=== PATIENT | male | born 1990 | race Caucasian/White ===

== ENCOUNTER 2017-01-16 07:40 | Observation (INO) | payer OTHER ==
[2017-01-16] MEDS ORDERED: Ketorolac 30 MG/ML SDV IVPUSH ONE (07:46)
[2017-01-16] MEDS ORDERED: Sodium Chloride 0.9% 1,000 ML IV ONE (07:46)
--- NOTE | 2017-01-16 08:04 | EDM.PDOC ---
ED HPI GENERAL MEDICAL PROBLEM - General Chief Complaint: Abdominal Pain Stated Complaint: ABDOMINAL AND SIDE PAIN Time Seen by Provider: 01/16/17 07:45 - History of Present Illness INITIAL COMMENTS - FREE TEXT/NARRATIVE: HISTORY AND PHYSICAL: History of present illness: Patient 26-year-old male presents with concern of acute right sided abdominal pain he states he noticed this initially yesterday at work when he felt a pop he has had prior herniorrhaphy on the right side he denies fever chills nausea vomiting he denies urinary symptoms denies history of urolithiasis Review of systems: As per history of present illness and below otherwise all systems reviewed and negative. Past medical history: As per history of present illness and as reviewed below otherwise noncontributory. Surgical history: As per history of present illness and as reviewed below otherwise noncontributory. Social history: No reported history of drug or alcohol abuse. Family history: As per history of present illness and as reviewed below otherwise noncontributory. Physical exam: HEENT: Atraumatic, normocephalic, pupils reactive, negative for conjunctival pallor or scleral icterus, mucous membranes moist, throat clear, neck supple, nontender, trachea midline. Lungs: Clear to auscultation, breath sounds equal bilaterally, chest nontender. Heart: S1S2, regular, negative for clicks, rubs, or JVD. Abdomen: Soft, nondistended, tenderness in right lower quadrant no rebound equivocal voluntary guarding. Negative for masses or hepatosplenomegaly. Negative for costovertebral tenderness. Pelvis: Stable nontender. Genitourinary: No hernia normal testes normal exam Rectal: Deferred. Extremities: Atraumatic, negative for cords or calf pain. Neurovascular unremarkable. Neuro: Awake, alert, oriented. Cranial nerves II through XII unremarkable. Cerebellum unremarkable. Motor and sensory unremarkable throughout. Exam nonfocal. Diagnostics: CBC CMP UA urine culture CT abdomen and pelvis Therapeutics: Normal saline 1 L bolus Toradol 30 mg IV Impression: #1 right-sided abdominal pain Definitive disposition and diagnosis as appropriate pending reevaluation and review of above. abdomen Pain Score (Numeric/FACES): 9 - Related Data Allergies Allergy/AdvReac Type Severity Reaction Status Date / Time No Known Allergies Allergy Verified 01/16/17 07:46 Home Meds: Home Meds . [No Known Home Meds] 01/16/17 [History] Past Medical History - Past Health History Medical/Surgical History: Denies Medical/Surgical History - Past Surgical History GI Surgical History: Reports: Hernia Repair/Other Social & Family History - Family History Family Medical History: Noncontributory - Tobacco Use Smoking Status *Q: Current Every Day Smoker Years of Tobacco use: 13 Packs/Tins Daily: 1 - Caffeine Use Caffeine Use: Reports: None - Recreational Drug Use Recreational Drug Use: No ED ROS GENERAL - Review of Systems Review Of Systems: ROS reveals no pertinent complaints other than HPI. ED EXAM, GENERAL - Physical Exam Exam: See Below (See dictation) Course - Vital Signs Last Recorded V/S: Last Vital Signs Temp 36.1 C 01/16/17 07:47 Pulse 91 01/16/17 09:43 Resp 18 01/16/17 09:43 BP 141/84 H 01/16/17 09:43 Pulse Ox 97 01/16/17 09:43 - Orders/Labs/Meds Orders: Active Orders 24 hr Category Date Time Status CULTURE URINE [RM] Stat Lab 01/16/17 08:00 Received Labs: Laboratory Tests 01/16/17 01/16/17 01/16/17 Range/Units 07:54 07:54 08:00 WBC 28.44 H (4.0-11.0) K/uL RBC 5.69 (4.50-5.90) M/uL Hgb 16.4 (13.0-17.0) g/dL Hct 48.8 (38.0-50.0) % MCV 85.8 (80.0-98.0) fL MCH 28.8 (27.0-32.0) pg MCHC 33.6 (31.0-37.0) g/dL RDW Std Deviation 42.1 (28.0-62.0) fl RDW Coeff of Ean 14 (11.0-15.0) % Plt Count 359 (150-400) K/uL MPV 9.60 (7.40-12.00) fL Add Manual Diff YES Neutrophils % (Manual) 86 H (48.0-80.0) % Band Neutrophils % 2 % Lymphocytes % (Manual) 6 L (16.0-40.0) % Monocytes % (Manual) 5 (0.0-15.0) % Eosinophils % (Manual) 1 (0.0-7.0) % Nucleated RBC % 0.0 /100WBC Absolute Seg Neuts 24.5 Band Neutrophils # 0.6 Lymphocytes # (Manual) 1.7 Monocytes # (Manual) 1.4 Eosinophils # (Manual) 0.3 Nucleated RBCs # 0 K/uL Sodium 139 (136-146) mmol/L Potassium 4.2 (3.5-5.1) mmol/L Chloride 105 (98-110) mmol/L Carbon Dioxide 26 (21-31) mmol/L BUN 10 (6.0-23.0) mg/dL Creatinine 1.1 (0.6-1.5) mg/dL Est Cr Clr Drug Dosing 122.70 mL/min Estimated GFR (MDRD) > 60.0 ml/min Glucose 114 H (60-110) mg/dL Calcium 9.7 (8.8-10.8) mg/dL Total Bilirubin 0.8 (0.1-1.5) mg/dL AST 27 (5-40) IU/L ALT 58 H (8-54) IU/L Alkaline Phosphatase 64 (40-150) Total Protein 8.1 H (6.0-8.0) g/dL Albumin 4.5 (3.5-5.0) g/dL Globulin 3.6 H (2.0-3.5) g/dL Albumin/Globulin Ratio 1.3 (1.3-2.8) Urine Color DARK YELLOW Urine Appearance CLEAR Urine pH 7.5 (5.0-8.0) Ur Specific [place] 1.020 (1.001-1.035) Urine Protein TRACE (NEGATIVE) mg/dL Urine Glucose (UA) NEGATIVE (NEGATIVE) mg/dL Urine Ketones TRACE H (NEGATIVE) mg/dL Urine Occult Blood NEGATIVE (NEGATIVE) Urine Nitrite NEGATIVE (NEGATIVE) Urine Bilirubin SMALL H (NEGATIVE) Urine Ictotest NEGATIVE Urine Urobilinogen 0.2 (<2.0) EU/dL Ur Leukocyte Esterase NEGATIVE (NEGATIVE) Urine RBC 0-1 (0-2/HPF) Urine WBC 1-2 (0-5/HPF) Ur Epithelial Cells RARE (NONE-FEW) Amorphous Sediment FEW (NEGATIVE) Urine Bacteria RARE (NEGATIVE) Meds: Medications Discontinued Medications Generic Name Dose Route Start Last Admin Trade Name Freq PRN Reason Stop Dose Admin Sodium Chloride 1,000 mls @ 999 mls/hr 01/16/17 07:46 01/16/17 07:58 Normal Saline IV 01/16/17 08:46 999 mls/hr STAT ONE Administration Ketorolac Tromethamine 30 mg 01/16/17 07:46 01/16/17 07:58 Toradol IVPUSH 01/16/17 07:47 30 mg ONETIME ONE Administration Departure - Departure Time of Disposition: 09:47 Disposition: Admitted As Inpatient 67 Condition: Good Clinical Impression: Abdominal pain, Appendicitis - Discharge Information Forms: ED Department Discharge - My Orders Last 24 Hours: My Active Orders 01/16/17 08:00 CULTURE URINE [RM] Stat - Assessment/Plan Last 24 Hours: My Active Orders 01/16/17 08:00 CULTURE URINE [RM] Stat
[2017-01-16 08:30] LABS: CHLORIDE,CL 105 mmol/L (98-110); SODIUM,NA 139 mmol/L (136-146)
--- NOTE | 2017-01-16 08:49 | CT ---
CT of the abdomen and pelvis without contrast. HISTORY: Pain TECHNIQUE: Axial CT images were obtained of the abdomen and pelvis without contrast. Coronal and sag ittal reconstructions obtained. FINDINGS: The lung bases are clear, no pleural effusion. There is moderate severe fatty infiltration of the liver. The spleen, adrenal glands, and pancreas a ppear unremarkable for noncontrast examination. The gallbladder appears normal. There is no bulky r etroperitoneal lymphadenopathy. No abdominal ascites. There is a tiny fat-containing umbilical herni a. There are no calcifications noted within the kidneys or along the courses of the ureters bilaterally . The large and small bowel are normal in caliber without evidence of obstruction. The appendix is mil dly prominent at 11 mm with a trace periappendiceal stranding. There is no bulky pelvic lymphadenopa thy. No free fluid. No free air. The urinary bladder appears normal. The visualized osseous structures appear normal. IMPRESSION: 1. Mildly prominent appendix with trace periappendiceal stranding, this may represent early appendic itis. 2. Moderate to severe fatty infiltration of the liver.
[2017-01-16] MEDS ORDERED: cefOXitin 2 GM in Premix Bag 1 BAG IV ONE ×2 (10:00→10:53)
[2017-01-16] MEDS: Lactated Ringers 1,000 ML IV SCH ×2 (10:41→22:04)
[2017-01-16] MEDS ORDERED: Lactated Ringers 1,000 ML IV SCH (11:00)
--- NOTE | 2017-01-16 11:25 | PCM.PREANE ---
Preanesthetic Assessment - Anesthesia/Transfusion/Family Hx Anesthesia History: Prior Anesthesia Without Reaction Family History of Anesthesia Reaction: Yes Family History of Anesthesia Reaction, Other: MH in great grandfather - Review of Systems General: No Symptoms Pulmonary: No Symptoms Cardiovascular: No Symptoms Gastrointestinal: Abdominal pain Neurological: No Symptoms Other: Reports: None - Physical Assessment NPO Status Date: 01/15/17 O2 Sat by Pulse Oximetry: 97 Respiratory Rate: 18 Vital Signs: Last Vital Signs Temp 36.1 C 01/16/17 07:47 Pulse 91 01/16/17 09:43 Resp 18 01/16/17 09:43 BP 141/84 H 01/16/17 09:43 Pulse Ox 97 01/16/17 09:43 Height: 1.91 m Weight: 131 kg ASA Class: 1E Mental Status: Alert & Oriented x3 Airway Class: Mallampati = 1 Dentition: Reports: Normal Dentition ROM/Head Extension: Full Lungs: Clear to auscultation, Normal respiratory effort Cardiovascular: Regular Rate, Regular Rhythm - Lab Values: Laboratory Last Values WBC 28.44 K/uL (4.0-11.0) H 01/16/17 07:54 RBC 5.69 M/uL (4.50-5.90) 01/16/17 07:54 Hgb 16.4 g/dL (13.0-17.0) 01/16/17 07:54 Hct 48.8 % (38.0-50.0) 01/16/17 07:54 MCV 85.8 fL (80.0-98.0) 01/16/17 07:54 MCH 28.8 pg (27.0-32.0) 01/16/17 07:54 MCHC 33.6 g/dL (31.0-37.0) 01/16/17 07:54 RDW Std Deviation 42.1 fl (28.0-62.0) 01/16/17 07:54 RDW Coeff of Ean 14 % (11.0-15.0) 01/16/17 07:54 Plt Count 359 K/uL (150-400) 01/16/17 07:54 MPV 9.60 fL (7.40-12.00) 01/16/17 07:54 Add Manual Diff YES 01/16/17 07:54 Neutrophils % (Manual) 86 % (48.0-80.0) H 01/16/17 07:54 Band Neutrophils % 2 % 01/16/17 07:54 Lymphocytes % (Manual) 6 % (16.0-40.0) L 01/16/17 07:54 Monocytes % (Manual) 5 % (0.0-15.0) 01/16/17 07:54 Eosinophils % (Manual) 1 % (0.0-7.0) 01/16/17 07:54 Nucleated RBC % 0.0 /100WBC 01/16/17 07:54 Absolute Seg Neuts 24.5 01/16/17 07:54 Band Neutrophils # 0.6 01/16/17 07:54 Lymphocytes # (Manual) 1.7 01/16/17 07:54 Monocytes # (Manual) 1.4 01/16/17 07:54 Eosinophils # (Manual) 0.3 01/16/17 07:54 Nucleated RBCs # 0 K/uL 01/16/17 07:54 Sodium 139 mmol/L (136-146) 01/16/17 07:54 Potassium 4.2 mmol/L (3.5-5.1) 01/16/17 07:54 Chloride 105 mmol/L (98-110) 01/16/17 07:54 Carbon Dioxide 26 mmol/L (21-31) 01/16/17 07:54 BUN 10 mg/dL (6.0-23.0) 01/16/17 07:54 Creatinine 1.1 mg/dL (0.6-1.5) 01/16/17 07:54 Est Cr Clr Drug Dosing 122.70 mL/min 01/16/17 07:54 Estimated GFR (MDRD) > 60.0 ml/min 01/16/17 07:54 Glucose 114 mg/dL (60-110) H 01/16/17 07:54 Calcium 9.7 mg/dL (8.8-10.8) 01/16/17 07:54 Total Bilirubin 0.8 mg/dL (0.1-1.5) 01/16/17 07:54 AST 27 IU/L (5-40) 01/16/17 07:54 ALT 58 IU/L (8-54) H 01/16/17 07:54 Alkaline Phosphatase 64 (40-150) 01/16/17 07:54 Total Protein 8.1 g/dL (6.0-8.0) H 01/16/17 07:54 Albumin 4.5 g/dL (3.5-5.0) 01/16/17 07:54 Globulin 3.6 g/dL (2.0-3.5) H 01/16/17 07:54 Albumin/Globulin Ratio 1.3 (1.3-2.8) 01/16/17 07:54 Urine Color DARK YELLOW 01/16/17 08:00 Urine Appearance CLEAR 01/16/17 08:00 Urine pH 7.5 (5.0-8.0) 01/16/17 08:00 Ur Specific [place] 1.020 (1.001-1.035) 01/16/17 08:00 Urine Protein TRACE mg/dL (NEGATIVE) 01/16/17 08:00 Urine Glucose (UA) NEGATIVE mg/dL (NEGATIVE) 01/16/17 08:00 Urine Ketones TRACE mg/dL (NEGATIVE) H 01/16/17 08:00 Urine Occult Blood NEGATIVE (NEGATIVE) 01/16/17 08:00 Urine Nitrite NEGATIVE (NEGATIVE) 01/16/17 08:00 Urine Bilirubin SMALL (NEGATIVE) H 01/16/17 08:00 Urine Ictotest NEGATIVE 01/16/17 08:00 Urine Urobilinogen 0.2 EU/dL (<2.0) 01/16/17 08:00 Ur Leukocyte Esterase NEGATIVE (NEGATIVE) 01/16/17 08:00 Urine RBC 0-1 (0-2/HPF) 01/16/17 08:00 Urine WBC 1-2 (0-5/HPF) 01/16/17 08:00 Ur Epithelial Cells RARE (NONE-FEW) 01/16/17 08:00 Amorphous Sediment FEW (NEGATIVE) 01/16/17 08:00 Urine Bacteria RARE (NEGATIVE) 01/16/17 08:00 - Allergies Allergies/Adverse Reactions: Allergies Allergy/AdvReac Type Severity Reaction Status Date / Time No Known Allergies Allergy Verified 01/16/17 07:46 - Acknowledgements Anesthesia Type Planned: General Anesthesia Pt an Appropriate Candidate for the Planned Anesthesia: Yes Alternatives and Risks of Anesthesia Discussed w Pt/Guardian: Yes Pt/Guardian Understands and Agrees with Anesthesia Plan: Yes Additional Comments: plan: clean machine and non-triggering anesthetics PreAnesthesia Questionnaire - Past Health History Medical/Surgical History: Denies Medical/Surgical History - Past Surgical History GI Surgical History: Reports: Hernia Repair/Other - SUBSTANCE USE Smoking Status *Q: Current Every Day Smoker Tobacco Use Within Last Twelve Months: Cigarettes Recreational Drug Use History: No - HOME MEDS Home Medications: Home Meds . [No Known Home Meds] 01/16/17 [History] - CURRENT (IN HOUSE) MEDS Current Meds: Current Medications Lactated Ringer's (Ringers, Lactated) 1,000 mls @ 125 mls/hr IV ASDIRECTED THEO Last Admin: 01/16/17 10:41 Dose: 125 mls/hr Lactated Ringer's (Ringers, Lactated) 1,000 mls @ 125 mls/hr IV ASDIRECTED THEO Discontinued Medications Sodium Chloride (Normal Saline) 1,000 mls @ 999 mls/hr IV STAT ONE Stop: 01/16/17 08:46 Last Admin: 01/16/17 07:58 Dose: 999 mls/hr Cefoxitin Sodium 2 gm/ Premix 50 mls @ 100 mls/hr IV ONETIME ONE Stop: 01/16/17 10:29 Last Admin: 01/16/17 10:05 Dose: 100 mls/hr Cefoxitin Sodium 2 gm/ Premix 50 mls @ 100 mls/hr IV ONETIME ONE Stop: 01/16/17 11:22 Last Admin: 01/16/17 10:57 Dose: Not Given Ketorolac Tromethamine (Toradol) 30 mg IVPUSH ONETIME ONE Stop: 01/16/17 07:47 Last Admin: 01/16/17 07:58 Dose: 30 mg
[2017-01-16] MEDS ORDERED: Bupivacaine 0.25%/EPINEPHrine 1:200,000 10 ML SDV ONE (11:42)
[2017-01-16] MEDS ORDERED: Lidocaine 2% 5 ML SDV ONE (11:53)
[2017-01-16] MEDS ORDERED: Ondansetron 4 MG/2 ML SDV ONE (11:53)
[2017-01-16] MEDS ORDERED: Propofol 200 MG/20 ML SDV ONE (11:53)
[2017-01-16] MEDS ORDERED: Midazolam 1 MG/ML 2 ML SDV ONE (11:54)
[2017-01-16] MEDS ORDERED: Sodium Chloride 0.9% 20 ML ONE (12:04)
[2017-01-16] MEDS ORDERED: fentaNYL 100 MCG/2 ML SDV IVPUSH PRN (13:08)
[2017-01-16] MEDS ORDERED: Neostigmine Methylsulfate 1 MG/ML 5 ML Syringe ONE (13:21)
[2017-01-16] MEDS ORDERED: Octyl 2-Cyanoacrylate 1 Tube ONE (13:23)
--- NOTE | 2017-01-16 13:42 | PCM.OPNOTE ---
- General Post-Op/Procedure Note Date of Surgery/Procedure: 01/16/17 Operative Procedure(s): lap appendectomy Findings: appendix was with large amt of exudate and induration, and adherence to surrounding organs cw full blown acute appendicitis, no gross perforation; [id number] Pre Op Diagnosis: acute appendicitis Post-Op Diagnosis: Same Anesthesia Technique: General ET tube Primary Surgeon: Henrry Batista Pathology: sent Complications: None Condition: Fair
--- NOTE | 2017-01-16 13:44 | PCM.SN ---
- Free Text/Narrative Note: h&P cw acute appendicitis; will proceed w surgery appendectomy; because of fam hx of malignant hyperthermia, will proceed surgery with MH protocol; and will admit for observation afterward
[2017-01-16] MEDS ORDERED: Ondansetron 4 MG/2 ML SDV IVPUSH PRN (13:46)
--- NOTE | 2017-01-16 14:19 | PCM.POSTAN ---
POST ANESTHESIA ASSESSMENT - MENTAL STATUS Mental Status: alert, oriented - VITAL SIGNS Pulse Rate: 97 SaO2: 99 Blood Pressure: 115/67 - RESPIRATORY Respiratory Status: respiratory rate WNL, airway patent, O2 saturation stable, supplemental oxygen - CARDIOVASCULAR CV Status: pulse rate WNL, blood pressure stable - GASTROINTESTINAL GI Status: no symptoms - PAIN Pain Score: 0 - POST OP HYDRATION Hydration Status: adequate & stable - OBSERVATIONS Free Text/Narrative:: Pt doing well post op with no signs of MH. Pt's talked to over the phone to reassure her of pt's status. VSS. Pt denies any pain or nausea at this time.
--- NOTE | 2017-01-16 16:37 | PCM48HPAN ---
Post Anesthesia Note - EVALUATION WITHIN 48HRS OF ANESTHETIC Vital Signs in Normal Range: Yes Patient Participated in Evaluation: Yes Respiratory Function Stable: Yes Airway Patent: Yes Cardiovascular Function Stable: Yes Hydration Status Stable: Yes Pain Control Satisfactory: Yes Nausea and Vomiting Control Satisfactory: Yes Mental Status Recovered: Yes - COMMENTS/OBSERVATIONS Free Text/Narrative:: Pt in good spirits with no complaints. VSS.
--- NOTE | 2017-01-16 17:49 | HP ---
DATE OF : 1990 PRIMARY CARE PHYSICIAN: None PCP Consult was called. The patient was seen shortly after. CONCERNING QUESTION: Acute appendicitis. HISTORY OF PRESENT ILLNESS: The patient is a 26-year-old large built gentleman, who complains of an 18-hour history of acute onset right lower quadrant pain. Pain intensifies and gets to the point that the patient remarks 10/10 on the pain scale. The patient was admitted to the emergency room, CAT scan revealed early appendicitis, and Surgery was then consulted. The patient remarked that the car stopped at a stoplight and he had more pain. Pain is mainly in the right lower quadrant and never had that happened before. Denied nausea or vomiting. Denied fever or chill. PAST MEDICAL HISTORY: Significant for no diabetes, ID, CVA, or hypertension. The patient's great grandfather of malignant hyperthermia, and patient had a right inguinal hernia repair surgery in the past and with a lot of precaution on malignant hyperthermia and according the patient, there is no incident. PAST SURGICAL HISTORY: Right inguinal hernia repair. ALLERGIES: Please refer nursing for details. MEDICATIONS: Please refer nursing for details PHYSICAL EXAMINATION: GENERAL: A very pleasant, nice gentleman, who smiles to the doctor, in no acute distress. HEENT: Normocephalic, atraumatic. Sclerae anicteric. LUNGS: Clear to auscultation. HEART: Regular rate and rhythm. ABDOMEN: Soft, nondistended. No pulsating, tender midline abdominal structure. An exquisite tenderness at the McBurney point in the right lower quadrant and no rebound tenderness and also positive Rovsing sign. LABORATORY DATA: White count is 28 and CAT scan is positive for appendicitis. IMPRESSION: Acute appendicitis. PLAN: Would benefit from surgical intervention. Risks and benefits were discussed with the patient including bleeding, infection, and possible rupture requiring dressing change and we will proceed with surgical removal of the appendix. With the patient's history of malignant hyperthermia, I discussed with the anesthesiology team. We going to assume positive do all precaution. Risks and benefits were discussed with the patient. The patient concurred to proceed as planned. A 2 g IV Mefoxin was given. ALEX JUNE /[id number]
[2017-01-16] MEDS: Acetaminophen/oxyCODONE 325-7.5 MG Tab PO PRN ×2 (19:00→23:01)
--- NOTE | 2017-01-16 21:55 | OR ---
SURGEON: Henrry Batista MD DATE OF PROCEDURE: 01/16/2017 PREOPERATIVE DIAGNOSIS: Acute appendicitis. POSTOP DIAGNOSIS: Acute appendicitis. PROCEDURE PERFORMED: Laparoscopic appendectomy. COMPLICATIONS: None. FINDINGS: Appendix is grossly with exudate consistent with appendicitis. It is not grossly perforated and we have also adherence to surrounding organ consistent with early to full grown acute appendicitis. Again, is no perforation. PROCEDURE: The patient was taken to the operating room and placed in the supine position. Following induction of general endotracheal anesthesia, the patient's abdomen was prepped and draped in the sterile fashion. A time-out has been called. The patient was identified. The procedure was identified. The antibiotics were identified. The procedure then proceeded. The abdomen was prepped and draped in a standard fashion. After assessment of appropriate landmarks, a 12 millimeter trocar was inserted supraumbilically using Optiview and pneumoperitoneum was then achieved. This was followed with placement of 5 millimeter port in the right upper quadrant and another 5 millimeter port infraumbilically. The camera was inserted supraumbilical site and two laparoscopic Jt retractors were then inserted through the other two sites. Following the cecum, the appendix was located. The appendix was then lifted up, and using a GI stapler the appendix was amputated at the base. And using the GI stapler, the mesoappendix was then amputated. The appendix was retrieved by an endoscopic bag and sent for pathologist. This was then followed by re-insertion of the camera to examine the staple line, and hemostasis. The trocars were then removed. The umbilical site was closed with 2-0 Vicryl deep stitch and 4 -0 Vicryl and Dermabond; the other 2 5 mm port sites were closed with 4-0 Vicryl and Dermabond. The patient was then awakened, extubated, and transferred to the recovery room in hemodynamically stable condition. Prior to closing, sponge count and instrument count was correct. Of note, the patient has a family history of malignant hyperthermia. The patient after surgery is doing fine. We are going to send a UA as it look like it is pretty concentrated and also kept him on overnight observation for history. Dr. Batista was present throughout the whole procedure. As always, thank you for the kind referral. ALEX / SLADE /[id number]
[2017-01-17] MEDS: Lactated Ringers 1,000 ML IV SCH ×2 (01:02→04:54)
[2017-01-17] MEDS: Acetaminophen/oxyCODONE 325-7.5 MG Tab PO PRN ×2 (04:10→08:32)
[2017-01-17 11:42] VITALS: BP 143/85
== END 2017-01-17 13:22 | disposition home or self-care (01) ==
LOC: MW.ED 07:40 → MW.SDS 11:06 → MW.MS 14:03
PROVIDERS: ADMIT Surgery; ATTEND Surgery
PROC: 0DTJ4ZZ Resection of Appendix, Percutaneous Endoscopic Approach (ICD-10-PCS; principal; 2017-01-16)
DX: K35.80 Unspecified acute appendicitis (principal); F17.210 Nicotine dependence, cigarettes, uncomplicated; Z98.890 Other specified postprocedural states
CPT/HCPCS: 36415; 44970; 74176; 80053; 81001; 81003; 85025; 87086; 88304; 96361; 96365; 96375; 99285; A9270; G0378; J1885; J2250; J2405; J7040; J7120; 00840; 99283; J2704